=== PATIENT | male | born 1980 | race Caucasian/White ===

== ENCOUNTER 2020-05-24 15:59 | Outpatient (REF) | payer OTHER, SELFPAY ==
[2020-05-29 17:10] LABS: Patient Race White; SARS-CoV-2 RNA Undetected (Undetected); SARS-CoV-2 Specimen Source Nasal
== END 2020-05-24 16:19 ==
LOC: NCHCN 15:59
PROVIDERS: PCP Nurse Practitioner Family; Visit Provider Nurse Practitioner Family
DX: Z20.828 Contact with and (suspected) exposure to other viral communicable diseases (principal)
CPT/HCPCS: U0003

== ENCOUNTER 2020-12-25 09:46 | Emergency (ER) | payer OTHER, SELFPAY ==
[2020-12-25] VITALS (32 sets, daily range): BP systolic 100–136; BP diastolic 58–84; PULSE 64–89; RESP 11–29; TEMP 36.7; O2SAT 94–98
--- NOTE | 2020-12-25 09:45 | RT.EKG_ITS ---
APPROVED REPORT Exam: Resting ECG Reason for Exam: sob Patient Location: E HR:72 bpm ECG Measurements Heart Rate 72 AXIS OH 140 P 16 QRSd 104 QRS 8 QT 419 T 133 QTc 459 Conclusion Sinus rhythm...normal P axis, V-rate 60- 99 LVH with secondary repolarization abnormality...multi-LVH criteria, abnrm ST-T Tall T, consider metabolic/ischemic abnrm...T >1.2mV
--- NOTE | 2020-12-25 10:15 | DI.RAD_ITS ---
Exam(s) XR CHEST 2V PA LATERAL EXAM: XR CHEST 2V PA LATERAL CLINICAL HISTORY: palpitations, shortness of breath TECHNIQUE: 2D digital imaging was performed. COMPARISON: No exams were available for comparison FINDINGS: MEDIASTINUM: Normal. HEART: Normal. PULMONARY VASCULATURE: Normal. LUNGS: Clear. PLEURAL SPACE: No pleural effusion or pneumothorax. BONE:Within normal limits for the patient's age. OTHER FINDINGS:Normal. IMPRESSION: No acute pulmonary findings. DATA REPOSITORY: RADIATION DOSE DELIVERED:
[2020-12-25 10:39] LABS: Abs Immature Grans 0.02 10^3/uL (0.0-0.06); Absolute Basophil Count 0.05 10^3/uL (0.0-0.2); Absolute Eosinophil Count 0.37 10^3/uL (0.0-0.7); Absolute Lymphocyte Count 1.93 10^3/uL (1.2-3.4); Absolute Monocyte Count 0.47 10^3/uL (0.1-0.8); Absolute Neutrophil Count 5.28 10^3/uL (1.2-6.7); Basophils % 0.6; Eosinophils % 4.6; HCT 44.7 % (40.0-50.0); Immature Grans % 0.2; Lymphocytes % 23.8; MCH 28.1 pg (27.0-33.0); MCHC 33.6 % (32.0-36.0); MCV 83.9 fL (80-95); MPV 11.6 fL (8.0-11.0); Monocytes % 5.8; Nucleated RBC 0 %; Platelet Count 195 10^3/uL (130-400); RBC 5.33 10^6/uL (4.36-5.78); RDW-SD 39.4 fL; WBC 8.12 10^3/uL (4.4-10.8)
[2020-12-25 11:00] LABS: ALT 36 U/L (16-63); AST 22 U/L (15-37); Alkaline Phosphatase 85 U/L (46-116); Anion Gap 8.5 mmol/L (3-11); BUN 15 mg/dL (7-18); Bilirubin, Total 0.6 mg/dL (0.2-1.0); CO2 27.5 mmol/L (21.0-32.0); CREATININE 0.9 mg/dL (0.70-1.30); Calcium 9.2 mg/dL (8.5-10.1); Chloride 105 mmol/L (98-107); Glucose 116 mg/dL (74-106); Sodium 141 mmol/L (136-145); Total Protein 7.9 g/dL (6.4-8.2)
[2020-12-25 11:01] LABS: Troponin I < 0.05 ng/mL (<0.06)
--- NOTE | 2020-12-25 11:01 | ED.GENADUL_ITS ---
Discharge Plan Disposition Patient Disposition: HOME Condition: Stable Discharge Details Clinical Impression: PAC (premature atrial contraction), Palpitations Primary Care Provider: Nimisha,Local ED Provider: Wu Sanford Home Meds and New Rx's Prescriptions: Continued metoprolol succinate 100 mg tablet extended release 24 hr 100 mg PO HS RF: 0 omeprazole 40 mg capsule,delayed release(DR/EC) 40 mg PO QAM RF: 0 rosuvastatin 20 mg tablet 20 mg PO HS RF: 0 Discharge Instructions Instructions: Heart Palpitations (ED) Additional Instructions: Please take your medications as prescribed. Please contact your primary care physician to arrange follow-up. I have asked care management to assist in arranging local primary care follow-up. You should be contacted to schedule an appointment. Please follow-up with your loading machine operator. Call [facility] cardiology today to arrange timely follow-up within the next couple weeks Return to the ER immediately immediately for any worsening or new concerning symptoms. Discharge Data Discharge Date/Time-TO BE ENTERED AT DEPARTURE: 12/25/20 14:14 Medical Decision Making 1119??40-year-old male with history of cardiomyopathy and chronic infrequent episodes of palpitations, here with 3 days of intermittent palpitations after attending a green party and consuming alcohol. Patient is hemodynamically stable with no arrhythmia noted on monitor on initial assessment. He is saturating well in no respiratory distress with clear lungs. Screening ECG was reviewed and interpreted by me: Please see report, sinus rhythm 72 bpm, LVH, tall T waves are noted. I obtained outside hospital medical record and reviewed old 2019 EKG from [facility] dated 01/28/2019 which also shows LVH and ST changes, patient does have peaked although less significant T wave precordial leads. Patient did experience some palpitations while here in the emergency department and I reviewed rhythm strip from those episodes revealing PACs. Patient has had no chest pain or leg pain or swelling to indicate DVT/PE. Again he is saturating well with no respiratory distress with no shortness of breath at this time. Plan will be to obtain additional outside hospital records from [facility] cardiology. I will check screening labs to look for electrolyte abnormalities or thyroid that would predispose palpitations. We will check troponin level to assess for any ongoing ischemia although I think this is unlikely. 1405 --patient reassessed multiple times and is remained stable. He does have intermittent PACs on monitor. Patient was given IV fluid to 50 mL bolus and metoprolol 50 mg p.o. Orthostatic vital signs checked and normal. Patient was able to ambulate without any difficulty. Labs reviewed and no significant electrolyte abnormalities. Repeat EKG was reviewed and interpreted by me: Please see report, no significant changes compared to prior I did call and consult with patient cardiology group at [facility] and spoke with loading machine operator on-call, discussed ED presentation course, he noted if labs normal and nonsustained arrhythmia, discharged with the recommend discharge with outpatient follow-up in clinic. HPI General Mode of arrival: ambulatory . Date/Time Provider Initiated Documentation: 12/25/20 10:02 . Limitations to Documentation: no limitations . Information obtained by: patient . HPI Narrative: 40-year-old male with history of cardiomyopathy presents with chief complaint of palpitations. Patient notes that he has intermittent episodes of palpitations that he experiences and flares a couple times a year for years. Is currently having 1 of these exacerbations over the past 3 days. He notes this past weekend he consumed a heavy not of alcohol and subsequently developed palpitations that he describes as heavy beats that have associated shortness of breath during time of palpitation. He notes she is recently had some fatigue over the past couple days. he denies chest pain. No leg swelling or pain. No other symptoms. He notes that he took his metoprolol and having palpitations yesterday and that this did help his symptoms. He had some palpitations this morning and does not currently. He does consume small amount of caffeinated beverages on a regular basis. No recent dietary changes. Related Data Home Medications Medication Instructions Recorded Confirmed metoprolol succinate 100 mg PO 12/25/20 12/25/20 omeprazole 40 mg PO [facility] 12/25/20 12/25/20 rosuvastatin 20 mg PO 12/25/20 12/25/20 Allergies Allergy/AdvReac Type Severity Reaction Status Date / Time No Known Allergies Allergy Unverified 12/25/20 09:56 General Stated Complaint: Palpitatns NANETTE: 3 Review of Systems All systems reviewed & are unremarkable except as noted in HPI and below Constitutional Constitutional: Reports fatigue and Denies fever(s) Cardiovascular Cardiovascular: Reports as per HPI and Denies chest pain Respiratory Respiratory: Reports as per HPI Endocrine Endocrine: Reports fatigue [facility] Medical History (Updated 12/25/20 @ 13:59 by Wu Sanford MD) Cardiomyopathy GERD (gastroesophageal reflux disease) H/O renal calculi Surgical History H/O hernia repair Family History (Updated 01/01/21 @ 16:12 by Sonal Muller) Mother High cholesterol Father Carcinoma Depression Heart disease High cholesterol Hypertension Sister Depression Heart disease High cholesterol Hypertension Maternal Grandfather , 83 Lymphoma Heart disease Paternal Grandfather , 74 Diabetes Heart disease High cholesterol Maternal Grandmother No problems noted. Paternal Grandmother , 76 Diabetes Social History (Updated 01/01/21 @ 16:10 by Sonal Muller) Smoking/Tobacco Use Status: Former Tobacco Use tobacco type: cigarettes Quit Date: 07/13/14 Tobacco: How many years used: 20 Second Hand Exposure: Yes Smoking risk assessment performed?: Yes Alcohol Intake: current Alcohol Intake frequency: a few times a week Alcohol type: beer and hard liquor Drug use: Daily Substance use type: marijuana Household members: spouse Housing: house Communication Needs: None Do you need help understanding health information?: Never Pets and animals: Yes Pets and animals: cat(s) and dog(s) Sexually active: Yes Do you think of yourself as: straight/heterosexual Current gender identity: male What is your relationship status?: How often do you talk on the phone with friends or family?: twice per week How often do you get together with friends or relatives?: once per week How often do you attend anabaptism or islam services?: decline to answer Do you belong to any clubs or organized social groups?: decline to answer Panel score (0-1 are the most socially isolated patients): 2 Duration: 30-45 minutes/day Frequency: 3-4 times per week Ciarra/Uatsdin: Other Special ciarra needs: No Seatbelt use: always Drive intox or ride w/intox bulk driver: No Do you feel safe at home: Yes Do you feel safe in your relationship?: Yes Exam Const General: cooperative and no acute distress HENMT Mouth: moist mucous membranes Eyes Conjunctivae: normal conjunctivae Sclera: normal sclerae Neck Neck: trachea midline and supple Resp Auscultation: clear to auscultation bilaterally, no rales, no rhonchi and no wheezes Cardio Jugular venous pressure: no JVD Rate: regular rate and not tachycardic Rhythm: regular rhythm Heart Sounds: murmur systolic II/ GI Palpation: soft, not firm, no guarding, no masses, not rigid and nontender Skin General skin exam: no rashes or lesions noted Neuro General: patient alert, patient awake, patient oriented x3 and tone normal Extrem General: no calf tenderness and no edema Psych Appearance: grossly normal Mental Status: mental status grossly normal Speech and Movement: speech and movement normal Course Vital Signs Vital signs: Vital Signs Temperature 36.7 C 12/25/20 09:53 Pulse 85 12/25/20 09:53 Respiratory Rate 16 12/25/20 09:53 Blood Pressure 136/76 12/25/20 09:53 Pulse Oximetry 98 12/25/20 09:53 Temperature 36.7 C 12/25/20 09:53 Temperature Source Skin 12/25/20 09:53 Pulse 85 12/25/20 09:53 Respiratory Rate 16 12/25/20 09:53 Respiratory Effort Non-Labored 12/25/20 09:58 Blood Pressure 136/76 12/25/20 09:53 Blood Pressure Position Sitting 12/25/20 09:53 Pulse Oximetry 98 12/25/20 09:53 Oxygen Delivery Method Room Air 12/25/20 09:53 Oxygen Flow Rate 0 12/25/20 09:53 Pain Level 0 12/25/20 09:53 Lab/Test Results Lab/Test Results: Laboratory Tests Range/Units 12/25/20 12/25/20 10:05 10:05 WBC (4.4-10.8) 10^3/uL 8.12 RBC (4.36-5.78) 10^6/uL 5.33 Hgb (13.5-17.5) g/dL 15.0 Hct (40.0-50.0) % 44.7 MCV (80-95) fL 83.9 MCH (27.0-33.0) pg 28.1 MCHC (32.0-36.0) % 33.6 RDW (11.8-14.1) % 13.0 Plt Count (130-400) 10^3/uL 195 MPV (8.0-11.0) fL 11.6 H Immature Gran % 0.2 Neutrophils % 65.0 Lymphocytes % 23.8 Monocytes % 5.8 Eosinophils % 4.6 Basophils % 0.6 Nucleated RBC % % 0 Absolute Neutrophils (1.2-6.7) 10^3/uL 5.28 Absolute Lymphocytes (1.2-3.4) 10^3/uL 1.93 Absolute Monocytes (0.1-0.8) 10^3/uL 0.47 Absolute Eosinophils (0.0-0.7) 10^3/uL 0.37 Absolute Basophils (0.0-0.2) 10^3/uL 0.05 Sodium (136-145) mmol/L 141 Potassium (3.5-5.1) mmol/L 4.0 Chloride (98-107) mmol/L 105 Carbon Dioxide (21.0-32.0) mmol/L 27.5 Anion Gap (3-11) mmol/L 8.5 BUN (7-18) mg/dL 15 Creatinine (0.70-1.30) mg/dL 0.9 Estimated GFR/1.73 m2 (mL/min/1.73m2) >= 60.00 Glucose (74-106) mg/dL 116 H Calcium (8.5-10.1) mg/dL 9.2 Magnesium (1.8-2.4) mg/dL 2.0 Total Bilirubin (0.2-1.0) mg/dL 0.6 AST (15-37) U/L 22 ALT (16-63) U/L 36 Alkaline Phosphatase (46-116) U/L 85 Troponin I (<0.06) ng/mL < 0.05 Total Protein (6.4-8.2) g/dL 7.9 Albumin (3.4-5.0) g/dL 4.0 TSH (0.36-3.74) uIU/mL 1.70
[2020-12-25] MEDS: Metoprolol 50 MG TAB PO (12:59)
[2020-12-25] MEDS: Lactated Ringers 250 ML 500 ML IV (12:59)
[2020-12-25] MEDS: Normal Saline Flush 10 ML SYR IVP (13:00)
--- NOTE | 2020-12-25 13:45 | RT.EKG_ITS ---
APPROVED REPORT Exam: Resting ECG Reason for Exam: palpitations Patient Location: E HR:59 bpm ECG Measurements Heart Rate 59 AXIS DE 152 P 22 QRSd 103 QRS 7 QT 447 T 139 QTc 442 Conclusion Sinus bradycardia...rate< 60 LVH with secondary repolarization abnormality...multi-LVH criteria, abnrm ST-T
[2020-12-25 14:37] LABS: Troponin I < 0.05 ng/mL (<0.06)
--- NOTE | 2020-12-25 18:58 | NUR.NOTE ---
Nursing Note: pt referred to cm to establish pcp
== END 2020-12-25 14:14 | disposition home or self-care (01) ==
PROVIDERS: Emergency Provider Student in an Organized Health Care Education/Training Program
DX: I49.1 Atrial premature depolarization (principal); R00.2 Palpitations
CPT/HCPCS: 36415; 80053; 93005; 96360; 99284; 71046; 83735; 84443; 84484; 85025; 93010

== ENCOUNTER 2021-05-22 16:41 | Outpatient (REF) | payer OTHER, SELFPAY ==
[2021-05-23 00:42] LABS: Hemoglobin A1C 5.7 % (<5.7)
[2021-05-23 08:25] LABS: Calculated LDL 126 mg/dL (<100); Cholesterol 214 mg/dL (<200); HDL Cholesterol 66 mg/dL (40-60); Triglyceride 112 mg/dL (<150)
== END 2021-05-22 16:42 | disposition home or self-care (01) ==
LOC: LBN 16:41
PROVIDERS: PCP Nurse Practitioner Family; Visit Provider Nurse Practitioner Family
DX: Z13.220 Encounter for screening for lipoid disorders (principal); Z13.1 Encounter for screening for diabetes mellitus
CPT/HCPCS: 80061; 83036

== ENCOUNTER 2021-05-23 14:42 | Outpatient (CLI) | payer OTHER, SELFPAY ==
--- NOTE | 2021-06-17 10:42 | ZIOP_ITS ---
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 ?The patient was in normal sinus rhythm for the majority of the recording with an average heart rate of 82 bpm ?There were 4 episodes of supraventricular tachycardia the longest lasting 6 beats at a rate of 115 bpm. There were rare PACs ?There was one episode of NSVT lasting a total of 4 beats. There were rare PVCs ?There were no episodes of atrial fibrillation, no pauses greater than 3 seconds and no evidence of high degree heart block. ?There were no patient triggered events. Overall, this monitor is notable for a low burden of ectopy.
== END 2021-05-23 14:43 | disposition home or self-care (01) ==
LOC: RT 14:42
PROVIDERS: PCP Nurse Practitioner Family; Visit Provider Nurse Practitioner Family
CPT/HCPCS: 93246

== ENCOUNTER → 2021-10-22 13:09 | Outpatient (CLI) | payer OTHER, SELFPAY ==
--- NOTE | 2021-10-22 15:45 | DI.RAD_ITS ---
Exam(s) XR HIP RT COMPLETE AP PELVIS EXAM: XR HIP RT COMPLETE AP PELVIS CLINICAL HISTORY: Failing PT/continued pain M25.551 PAIN RT HIP. TECHNIQUE: 2D digital imaging was performed of the right hip. Three images were obtained. AP pelvis and lateral right hip views were obtained. COMPARISON: No exams were available for comparison FINDINGS: BONES: No acute fracture is present. No bony destructive lesion is seen. JOINTS: No dislocation present. There is mild narrowing and acetabular spurring of the hips bilateral ly. SOFT TISSUE: Normal. IMPRESSION: Mild degenerative changes of the right hip. DATA REPOSITORY: RADIATION DOSE DELIVERED:
== END ==
PROVIDERS: PCP Nurse Practitioner Family; Visit Provider Nurse Practitioner Family
DX: M25.551 Pain in right hip (principal); M16.11 Unilateral primary osteoarthritis, right hip
CPT/HCPCS: 73502

== ENCOUNTER 2021-10-29 08:41 | Outpatient (CLI) | payer OTHER, SELFPAY ==
[2021-10-30 00:38] LABS: COVID-19 RT-PCR UVMMC Result Negative (Negative)
== END 2021-10-29 08:42 | disposition home or self-care (01) ==
LOC: LBO 08:43
PROVIDERS: Nurse Practitioner Family; PCP Nurse Practitioner Family; Visit Provider Nurse Practitioner Family
DX: Z20.822 Contact with and (suspected) exposure to COVID-19 (principal)
CPT/HCPCS: U0003

== ENCOUNTER → 2021-11-06 02:18 | Outpatient (CLI) | payer OTHER, SELFPAY ==
--- NOTE | 2021-11-06 15:55 | DI.RAD_ITS ---
Exam(s) XR SHOULDER RT COMPLETE 2+V EXAM: XR SHOULDER RT COMPLETE 2+V CLINICAL HISTORY: RT SHOULDER PAIN,,M25.511. TECHNIQUE: 2D digital imaging was performed. Five views. COMPARISON: No exams were available for comparison FINDINGS: BONES: No acute fracture is present. No bony destructive lesion is seen. JOINTS: No dislocation present. SOFT TISSUE: Normal. IMPRESSION: Unremarkable radiographs of the right shoulder. DATA REPOSITORY: RADIATION DOSE DELIVERED:
== END ==
PROVIDERS: PCP Nurse Practitioner Family; Visit Provider Nurse Practitioner Family
DX: M25.511 Pain in right shoulder (principal)
CPT/HCPCS: 73030

== ENCOUNTER 2022-01-10 20:58 | Emergency (ER) | payer OTHER, SELFPAY ==
[2022-01-10 21:02] VITALS: BP 132/87; PULSE 88; RESP 16; TEMP 36.2; O2SAT 99
[2022-01-10] MEDS: Lidocaine 1% Multi-Dose 20 ML VIAL (21:27)
[2022-01-10] MEDS: Lidocaine 1% Pres-Free 30 ML VIAL IJ (21:49)
--- NOTE | 2022-01-10 22:08 | ED.GENADUL_ITS ---
Discharge Plan Disposition Patient Disposition: HOME Condition: Stable Discharge Details Clinical Impression: Laceration of thumb Primary Care Provider: Abiodun Valentine ED Provider: Shana Lund Home Meds and New Rx's Prescriptions: Continued sertraline 50 mg tablet 50 mg PO DAILY Qty: 90 4RF omeprazole 20 mg capsule,delayed release(DR/EC) 20 mg PO DAILY cetirizine 10 mg capsule 10 mg PO DAILY PRN ibuprofen 800 mg tablet 800 mg PO Q8H albuterol sulfate 90 mcg/actuation HFA aerosol inhaler 2 inh inhalation Q6H PRN (Reason: asthma) Qty: 8.5 3RF metoprolol succinate 50 mg tablet extended release 24 hr 50 mg PO DAILY Qty: 90 3RF metoprolol succinate 100 mg tablet extended release 24 hr 100 mg PO HS rosuvastatin 20 mg tablet 25 mg PO HS Discharge Instructions Instructions: Laceration (ED) Additional Instructions: Keep wound clean and dry Suture removal in 10 to 12 days Keep dry for 24 hours, after that you may expose wound to water, however do not submerge it in water until sutures are removed Keep covered while at work Change dressing daily Wash with soap and water No need to apply bacitracin or anything over the surface Referrals: Abiodun Valentine, COMPUTER SCIENCE INTERN [Primary Care Provider] - Medical Decision Making suture removal in 10-12 days dressing applied by me return with new or worsening complaints Medical Records Medical records reviewed: Yes I reviewed the patient's medical records. Lab Data Lab results reviewed: Yes I reviewed the patient's lab results. HPI General Date/Time Provider Initiated Documentation: 01/10/22 21:20 . HPI Narrative: Next 47-year-old male presents with report of laceration to his right thumb. He states he was closing his arm in a splint and accidentally cut his thumb. He denies any additional injuries. He states his tetanus is up-to-date. Denies history of coagulopathy. Related Data Home Medications Medication Instructions Recorded Confirmed omeprazole 20 mg capsule,delayed 20 mg PO DAILY 01/24/21 01/10/22 release cetirizine 10 mg capsule 10 mg PO DAILY PRN 02/05/21 01/10/22 ibuprofen 800 mg tablet 800 mg PO Q8H 02/05/21 01/10/22 albuterol sulfate 90 mcg/actuation 2 inh inhalation Q6H PRN asthma 05/08/21 01/10/22 aerosol inhaler #8.5 grams sertraline 50 mg tablet 50 mg PO DAILY #90 tabs 07/03/21 01/10/22 metoprolol succinate 50 mg 50 mg PO DAILY #90 tabs 08/02/21 01/10/22 tablet,extended release 24 hr metoprolol succinate 100 mg 100 mg PO HS 01/10/22 01/10/22 tablet,extended release 24 hr rosuvastatin 20 mg tablet 25 mg PO HS 01/10/22 01/10/22 Previous Rx's Medication Instructions Recorded albuterol sulfate 90 mcg/actuation 2 inh inhalation Q6H PRN asthma 05/08/21 aerosol inhaler #8.5 grams sertraline 50 mg tablet 50 mg PO DAILY #90 tabs 07/03/21 metoprolol succinate 50 mg 50 mg PO DAILY #90 tabs 08/02/21 tablet,extended release 24 hr Allergies Allergy/AdvReac Type Severity Reaction Status Date / Time house dust Allergy Unknown Verified 01/10/22 21:08 cat dander Allergy Verified 01/10/22 21:08 General Stated Complaint: Laceration NANETTE: 4 Review of Systems Narrative: Review of systems obtained x3 and negative aside from indication in HPI PFSH All Active Problems (Updated 01/10/22 @ 22:05 by NORMA Mathis) Laceration of thumb (Acute) Right hip pain (Acute) Epigastric pain (Acute) Class 1 obesity without serious comorbidity with body mass index (BMI) of 33.0 to 33.9 in adult (Acute) High cholesterol (Chronic) Calcifying tendinitis of shoulder (Acute) GERD (gastroesophageal reflux disease) (Chronic) Anxiety (Chronic) Prediabetes (Acute) IHSS (idiopathic hypertrophic subaortic stenosis) (Acute) PAC (premature atrial contraction) (Acute) Palpitations (Acute) Medical History Cardiomyopathy GERD (gastroesophageal reflux disease) H/O renal calculi History of fibula fracture Surgical History H/O hernia repair Family History Mother High cholesterol Hypertension Father Carcinoma skin Depression Heart disease High cholesterol Hypertension Diabetes Sister Depression Heart disease High cholesterol Hypertension Diabetes Maternal Grandfather , 83 Lymphoma Heart disease Paternal Grandfather , 74 Diabetes Heart disease High cholesterol Maternal Grandmother No problems noted. Paternal Grandmother , 76 Diabetes Dementia Social History (Updated 07/30/21 @ 13:09 by Sheri Cee RN) Smoking/Tobacco Use Status: Former Tobacco Use tobacco type: cigarettes Quit Date: 07/13/14 Tobacco: How many years used: 20 Second Hand Exposure: Yes Smoking risk assessment performed?: Yes Alcohol Intake: current Alcohol Intake frequency: 3 or more drinks per day Alcohol type: beer and hard liquor Drug use: Daily Substance use type: marijuana Household members: spouse Housing: house Communication Needs: None Do you need help understanding health information?: Never current occupation: works at [employer] Pets and animals: Yes Pets and animals: cat(s) and dog(s) Sexually active: Yes Do you think of yourself as: straight/heterosexual Current gender identity: male What is your relationship status?: How often do you talk on the phone with friends or family?: twice per week How often do you get together with friends or relatives?: once per week How often do you attend religious or quaker services?: decline to answer Do you belong to any clubs or organized social groups?: decline to answer Panel score (0-1 are the most socially isolated patients): 2 Duration: 30-45 minutes/day Frequency: 3-4 times per week Ciarra/Spiritism: Other Special ciarra needs: No Seatbelt use: always Drive intox or ride w/intox corrugated fastener driver: No Do you feel safe at home: Yes Do you feel safe in your relationship?: Yes Exam Extrem Hand/finger images: 1. half-inch laceration noted, through nailbed n/v intact Course Vital Signs Vital signs: Vital Signs Temperature 36.2 C L 01/10/22 21:02 Pulse 88 01/10/22 21:02 Respiratory Rate 16 01/10/22 21:02 Blood Pressure 132/87 01/10/22 21:02 Pulse Oximetry 99 01/10/22 21:02 Temperature 36.2 C L 01/10/22 21:02 Pulse 88 01/10/22 21:02 Respiratory Rate 16 01/10/22 21:02 Respiratory Effort 01/10/22 21:11 Blood Pressure 132/87 01/10/22 21:02 Blood Pressure Position Sitting 01/10/22 21:02 Pulse Oximetry 99 01/10/22 21:02 Pain Level 0 01/10/22 21:02 Procedures Laceration Laceration 1: Site: hand Side (If applicable): right Size (cm): 1.5 Description: flap Depth: simple, single layer Local Anesthetic: Lidocaine 1% Amount of anesthesia used (mL): 3 Pre-repair: wound explored and irrigated extensively Skin layer closed with: other Size (cm): 4-0 Number of sutures: 3 Technique: simple, interrupted PAWSS Have you Been Recently Intoxicated or Drunk Within the Last 30 days?: No Have you Ever Experienced Previous Episodes of Alcohol Withdrawal?: No Have you ever Experienced Withdrawal Seizures?: No Have you ever Experienced Delirium Tremens(DT)s?: No Have you ever undergone Alcohol Rehabilitation Treatment (i.e, inpt ot outpatient treatment programs)?: No Have you ever Experienced Blackouts?: No Have you ever Combined Alcohol with other Downers within the last 90 days?: No Have you ever Combined Alcohol with any other Substance of Abuse during the last 90 days?: No Positive Blood Alcohol level on Presentation? [PCS.BAL]: No Evidence of Increased Autonomic Activity (i.e. HR>120, tremor, sweating, agitation, nausea)?: No Result: 0
== END 2022-01-10 22:13 | disposition home or self-care (01) ==
PROVIDERS: Emergency Provider Physician Assistant; PCP Nurse Practitioner Family
DX: S61.111A Laceration without foreign body of right thumb with damage to nail, initial encounter (principal); Z87.891 Personal history of nicotine dependence; W26.8XXA Contact with other sharp object(s), not elsewhere classified, initial encounter
CPT/HCPCS: 12001; 99281; 99282; J3490

== ENCOUNTER → 2022-03-03 15:16 | Outpatient (CLI) | payer OTHER, SELFPAY ==
--- NOTE | 2022-03-03 13:15 | DI.RAD_ITS ---
Exam(s) XR LUMBAR SPINE COMPLETE EXAM: XR LUMBAR SPINE COMPLETE CLINICAL HISTORY: lumbar back pain, M54.50. TECHNIQUE: 2D digital imaging was performed of the lumbar spine. Five images were obtained. AP, la teral, right oblique, left oblique and L5-S1 spot views were obtained. COMPARISON: No exams were available for comparison FINDINGS: BONES: No fracture or destructive lesion. Endplate osteophytes are seen throughout the lumbar spine. Mild facet sclerosis at L5-S1. DISKS: Mild disc space narrowing at L3-L4. ALIGNMENT: Lumbar spinal alignment is within normal limits. No spondylolysis or spondylolisthesis. SOFT TISSUE: Normal. IMPRESSION: Mild degenerative changes in the lumbar spine. DATA REPOSITORY: RADIATION DOSE DELIVERED:
== END ==
PROVIDERS: PCP Nurse Practitioner Family; Visit Provider Nurse Practitioner Family
DX: M47.816 Spondylosis without myelopathy or radiculopathy, lumbar region (principal)
CPT/HCPCS: 72110

== ENCOUNTER 2022-07-31 03:12 | Outpatient (CLI) | payer OTHER, SELFPAY ==
--- NOTE | 2022-07-31 07:45 | DI.RAD_ITS ---
Exam(s) RF JOINT INJECTION FLUORO GUID EXAM: RF JOINT INJECTION FLUORO GUID CLINICAL HISTORY: R HIP INJ UNDER FLUORO,rt hip pain, m25.551 TECHNIQUE: Fluoroscopy provided. Radiologist not present. CONTRAST MATERIAL: None COMPARISON: No exams were available for comparison FINDINGS: Fluoroscopy was provided for Dr. Quiroga during right hip injection. Please refer to the procedure report for complete details. Cumulative Dose: Ka,r=893 mGy IMPRESSION: RADIATION DOSE DELIVERED:
[2022-07-31] MEDS: Omnipaque 300 MG/ML 10 ML BTL IJ (13:55)
[2022-07-31] MEDS: Bupivacaine 0.5% Pres-Free 10 ML VIAL IJ (13:56)
[2022-07-31] MEDS: methylPREDNISolone ACETATE 80 MG/ML VIAL IM (13:56)
--- NOTE | 2022-07-31 18:34 | W.PROCNOTE ---
Date of service: 07/31/22 Time of Service: 13:40 Procedure Note Date of procedure: 07/31/22 Procedure: Right Hip Injection with Fluoroscopic Guidance Surgeon/Proceduralist/Physician: Markie Quiroga Procedure Diagnosis: Right Hip Pain Procedure Indications: Finesse has had persistent pain of the RIGHT hip and groin. Noninvasive measures have been tried. To serve as both diagnostic and therapeutic, an injection under fluoroscopy was recommended. I had discussed the risks of the procedure and the patient elected to proceed. Procedure Description: Finesse was greeted in the flouroscopy room. The correct side was identified and the consent was reviewed with the patient and signed. The patient was then placed in the supine position on the fluoroscopy table. The RIGHT hip was then prepped with Chloraprep. The anterolateral injection starting point was identiifed by bony landmarks and fluoroscopy. The skin and soft tissue in the tract of the injection was anesthetized with 1% Lidocaine. A spinal needle was then inserted deep into the hip joint at the level of the lateral femoral neck under fluoroscopic guidance. A small amount of Omnipaque solution was injected to confirm intraarticular placement. Once confirmed, the hip was injected with 5cc of 0.5% Bupivicaine and 80mg of Depo-Medrol. A bandaid was placed on the injection site. The patient tolerated the procedure well.
== END 2022-07-31 03:32 ==
LOC: DI 03:14
PROVIDERS: PCP Nurse Practitioner Family; Visit Provider Student in an Organized Health Care Education/Training Program
DX: M25.551 Pain in right hip (principal)
CPT/HCPCS: 20610; 77002; J1040

== ENCOUNTER 2022-09-22 02:41 | Outpatient (CLI) | payer OTHER, SELFPAY ==
--- NOTE | 2022-09-22 13:45 | DI.US_ITS ---
APPROVED REPORT EXAM: Comprehensive 2D, Doppler, and color-flow Echocardiogram Patient Location: Out-Patient Community Service Manager: Marisela Callaway RDCS (AE) Indications: Hypertrophic Cardiomyopathy Other Information Study Quality: Adequate Conclusion Severe concentric left ventricular hypertrophy. Left ventricular cavity is small. EF is 60 to 65%, normal wall motion Normal right ventricular size and systolic function Both atria are normal in size The aortic valve is trileaflet without stenosis or regurgitation Severe mitral annular calcification. Mildly thickened mitral leaflets. Moderate mitral regurgitatio n. Normal tricuspid valve with trace to mild regurgitation Dilated ascending aorta measuring 3.65 cm LVOT gradient peak is 50 mmHg Wall motion Left Ventricle The left ventricle is normal size. The overall left ventricular systolic function appears normal. Sev ere concentric left ventricular hypertrophy Echo findings are consistent with a left ventricular outf low tract obstruction. Left ventricular outflow tract gradient is present. There is normal LV segment al wall motion. There is no ventricular septal defect visualized. LVEF is 60 to 65% Right Ventricle The right ventricle is normal size. The right ventricular systolic function is normal. Atria The left atrium size is normal. The right atrium size is normal. The interatrial septum is intact wit h no evidence for an atrial septal defect. Aortic Valve The aortic valve is normal in structure. Aortic valve is trileaflet. There is no aortic valvular sten osis. No aortic regurgitation is present. Mitral Valve Severe mitral annular calcification. Mildly thickened mitral leaflets No evidence of mitral valve nehemiah nosis. Moderate mitral regurgitation. Tricuspid Valve The tricuspid valve is normal in structure. There is no tricuspid valve stenosis. Trace to mild tricu spid regurgitation. Unable to assess PA pressure. Pulmonic Valve The pulmonary valve is normal in structure. There is no pulmonic valvular stenosis. Trace pulmonic re gurgitation. Great Vessels The aortic root is normal in size. The ascending aorta is mildly dilated. Aortic arch is normal in ca liber. IVC is normal in size and collapses >50% with inspiration. Pericardium There is no pericardial effusion. 2D Dimensions IVSD d PLAX 1.93 cm M: 0.6-1.2 LV Vol A2C d MOD 187.5 mL LVPW d PLAX 1.36 cm M: 0.6 - 1.2 LV Vol A4C d MOD 192.3 mL LVID d PLAX 4.49 cm M: 4.2 - 5.8 LA vol/ BSA A2C s A-L 34.5 mL/m2 LVDs 3.20 cm M: 2.5 - 4.0 LA vol/ BSA A4C s A-L 39.5 mL/m2 Ao Root d 3.44 cm M: 3.1 - 3.7 LA Vol/ BSA Biplane s A-L 38.3 mL/m2 RA Area A4C 14.15 cm2 LA Area A4C s MOD 23.55 cm2 RA Vol/ BSA A4C s A-L 14.7 mL/m2 LA Area A2C s MOD 21.23 cm2 Ao Asc Diam d 3.64 cm M: 2.6 - 3.4 LV EF A4C MOD 50.2 % LV EF Teichholz 55.0 % LV EF A2C MOD 55.3 % LVEF (Salmon's) 51.84 % M: 52 - 72 LV EF Biplane MOD 51.8 % LV Volume 138.41 mL M: 62 - 150 SV 98.55 mL LV Volume Index 63.20 mL/m2 M: 34 - 74 SV Index 44.96 mL/m2 LV Vol Biplane MOD 190.1 mL FS 28.40 % M-Mode TAPSE 2.81 cm (M/F) >1.7 LV Diastology MV E' medial 0.061 (>0.07 m/s) E/A Ratio 1.5 LV E/e MED 25.05 (<14) MV E Vmax 1.52 (0.4-1.3 m/s) MV E' lateral 0.061 (>0.1 m/s) MV A Vmax 1.00 (0.4-1.3 m/s) LV E/e LAT 25.05 (<14) MV E/A Ratio 1.47 MV E/E' medial 25.05 MV E/E' lateral 25.05 Aortic Valve LVOT Area 3.74 cm2 LVOT Vmax 3.50 m/s LVOT Mean Yung. 2.00 m/s LVOT Peak Grad 49.1 mmHg LVOT Mean Grad 19.9 mmHg LVOT VTI 0.489 m LVOT Diam s 2.15 cm LVOT SV 183.16 mL Mitral Valve MV DT 239 (160-240 msec) MV PHT 69 msec MV Area PHT 3.17 cm2 MV VTI 0.399 m MV Area VTI 4.59 (4.0-6.0 cm2) Pulmonary Valve PV Vmax 1.17 (0.5-1.5 m/s) RVOT Peak Gr. 3.40 mmHg PV Peak Grad 5.5 mmHg RVOT Mean Gr. 1.80 mmHg PV Mean Grad 3.2 mmHg RVOT VTI 0.145 m PV VTI 0.228 m RVOT Vmax 0.92 m/s
== END 2022-09-22 03:01 ==
PROVIDERS: PCP Nurse Practitioner Family; Visit Provider Internal Medicine Cardiovascular Disease
DX: I42.1 Obstructive hypertrophic cardiomyopathy (principal)
CPT/HCPCS: 93306

== ENCOUNTER 2024-04-25 03:05 | Outpatient (CLI) | payer OTHER, SELFPAY ==
[2024-04-25 13:08] LABS: Hemoglobin A1C 5.7 % (<5.7)
[2024-04-25 13:09] LABS: Calculated LDL 144 mg/dL (<100); Cholesterol 243 mg/dL (<200); HDL Cholesterol 67 mg/dL (40-60); Triglyceride 164 mg/dL (<150)
== END 2024-04-25 03:06 | disposition home or self-care (01) ==
LOC: LBO 03:06
PROVIDERS: PCP Nurse Practitioner Family; Visit Provider Nurse Practitioner Family
DX: Z13.1 Encounter for screening for diabetes mellitus (principal); Z13.220 Encounter for screening for lipoid disorders
CPT/HCPCS: 36415; 80061; 83036

== ENCOUNTER 2024-06-03 17:52 | Outpatient (REF) | payer OTHER, SELFPAY | END 2024-06-03 17:53 | disposition home or self-care (01) | LOC: LBN 17:52 | PROVIDERS: PCP Nurse Practitioner Family; Visit Provider Nurse Practitioner Family | DX: J02.9 Acute pharyngitis, unspecified (principal) | CPT/HCPCS: 87070 ==

== ENCOUNTER 2024-06-05 12:17 | Emergency (ER) | payer OTHER, SELFPAY ==
--- NOTE | 2024-06-05 12:15 | DI.RAD_ITS ---
Exam(s) XR CHEST 2V PA LATERAL EXAM: XR CHEST 2V PA LATERAL CLINICAL HISTORY: cough. TECHNIQUE: 2D digital imaging was performed. COMPARISON: CR XR CHEST 2V PA LATERAL from 12/25/2020 FINDINGS: 2 views: Heart size is normal. The mediastinum is not widened. Lungs are clear. No infiltrates nor pleural effusions. IMPRESSION: No acute pulmonary findings.No significant change compared to 12/25/2020 DATA REPOSITORY: RADIATION DOSE DELIVERED:
--- NOTE | 2024-06-05 12:15 | RT.EKG_ITS ---
APPROVED REPORT Exam: Resting ECG Reason for Exam: SOB Patient Location: E HR:104 bpm ECG Measurements Heart Rate 104 AXIS WA 162 P 75 QRSd 101 QRS 25 QT 374 T 120 QTc 491 Conclusion Sinus tachycardia...rate> 99 LVH with secondary repolarization abnormality...multi-LVH criteria, abnrm ST-T ST elevation secondary to LVH...Multiple VCG criteria
[2024-06-05 12:21] VITALS: BP 109/75; PULSE 106; RESP 22; TEMP 36.6; O2SAT 93
--- NOTE | 2024-06-05 12:33 | W.ED.GENAD ---
Discharge Plan Disposition Patient Disposition: Home Condition: Stable Discharge Details Clinical Impression: Respiratory infection Primary Care Provider: Abiodun Valentine ED Provider: Chevy Wright Home Meds and New Rx's Prescriptions: New amoxicillin-pot clavulanate 875-125 mg tablet 1 tab PO BID Qty: 19 0RF prednisone 20 mg tablet 60 mg PO DAILY 4 Days Qty: 12 0RF Continued lamotrigine 25 mg tablet See Rx Instructions PO DAILY Qty: 42 0RF Rx Instructions: orally daily; *Take 1 tab, qAM x 2 weeks then Take 2 tabs qAM x 2 weeks.* Then see new prescription. lamotrigine 100 mg tablet 100 mg PO DAILY Qty: 30 3RF Rx Instructions: (Start after completing 50 mg/day) Take 1 tab, qAM until next appt cetirizine 10 mg capsule 10 mg PO DAILY PRN ibuprofen 800 mg tablet 800 mg PO Q8H albuterol sulfate 90 mcg/actuation HFA aerosol inhaler 2 inh inhalation Q6H PRN (Reason: asthma) Qty: 8.5 3RF metoprolol succinate 100 mg tablet extended release 24 hr 100 mg PO HS Qty: 90 3RF metoprolol succinate 50 mg tablet extended release 24 hr 50 mg PO DAILY Qty: 90 3RF omeprazole 20 mg capsule,delayed release(DR/EC) 20 mg PO DAILY Qty: 90 3RF rosuvastatin 20 mg tablet 20 mg PO HS Qty: 90 3RF sertraline 50 mg tablet 50 mg PO DAILY Qty: 90 4RF Discharge Instructions Additional Instructions: Continue to use your albuterol inhaler as needed If not improving this week follow-up with your primary care provider or express care If you feel more ill, have worsening shortness of breath or new symptoms such as persistent vomiting return to the emergency department for reevaluation HPI General Mode of arrival: ambulatory. Date/Time Provider Initiated Documentation: 06/05/24 12:19. Limitations to Documentation: no limitations. Information obtained by: patient. History of Present Illness 43 year old M presents to the emergency department with the chief complaint of cough, described as moderate, Patient started experiencing this day(s) (3) and it has been constant. No relieving factors improve symptom(s), No exacerbating factors reported . Patient notes shortness of breath; denies chest pain and fever/chills. Related Data Home Medications ?Medication ?Instructions ?Recorded ?Confirmed cetirizine 10 mg capsule 10 mg PO DAILY PRN 02/05/21 06/05/24 ibuprofen 800 mg tablet 800 mg PO Q8H 02/05/21 06/05/24 albuterol sulfate 90 mcg/actuation 2 inh inhalation Q6H PRN asthma 12/10/23 06/05/24 aerosol inhaler #8.5 grams metoprolol succinate 100 mg 100 mg PO HS #90 tabs 12/10/23 06/05/24 tablet,extended release 24 hr metoprolol succinate 50 mg 50 mg PO DAILY #90 tabs 12/10/23 06/05/24 tablet,extended release 24 hr omeprazole 20 mg capsule,delayed 20 mg PO DAILY #90 caps 12/10/23 06/05/24 release rosuvastatin 20 mg tablet 20 mg PO HS #90 tabs 12/10/23 06/05/24 sertraline 50 mg tablet 50 mg PO DAILY #90 tabs 12/10/23 06/05/24 lamotrigine 100 mg tablet 100 mg PO DAILY #30 tabs 04/28/24 06/05/24 lamotrigine 25 mg tablet See Rx Instructions PO DAILY #42 04/28/24 06/05/24 tabs amoxicillin 875 mg-potassium 1 tab PO BID #19 tabs 06/05/24 clavulanate 125 mg tablet prednisone 20 mg tablet 60 mg (3 x 20 mg) PO DAILY 4 days 06/05/24 #12 tabs Previous Rx's ?Medication ?Instructions ?Recorded albuterol sulfate 90 mcg/actuation 2 inh inhalation Q6H PRN asthma 12/10/23 aerosol inhaler #8.5 grams metoprolol succinate 100 mg 100 mg PO HS #90 tabs 12/10/23 tablet,extended release 24 hr metoprolol succinate 50 mg 50 mg PO DAILY #90 tabs 12/10/23 tablet,extended release 24 hr omeprazole 20 mg capsule,delayed 20 mg PO DAILY #90 caps 12/10/23 release rosuvastatin 20 mg tablet 20 mg PO HS #90 tabs 12/10/23 sertraline 50 mg tablet 50 mg PO DAILY #90 tabs 12/10/23 lamotrigine 100 mg tablet 100 mg PO DAILY #30 tabs 04/28/24 lamotrigine 25 mg tablet See Rx Instructions PO DAILY #42 04/28/24 tabs amoxicillin 875 mg-potassium 1 tab PO BID #19 tabs 06/05/24 clavulanate 125 mg tablet prednisone 20 mg tablet 60 mg (3 x 20 mg) PO DAILY 4 days 06/05/24 #12 tabs Allergies Allergy/AdvReac Type Severity Reaction Status Date / Time house dust Allergy Unknown sneezing Verified 06/05/24 12:23 cat dander Allergy sneezing Verified 06/05/24 12:23 General Stated Complaint: RespSymp NANETTE: 3 Review of Systems All systems reviewed & are unremarkable except as noted in HPI and below Constitutional Constitutional: Denies chills, Denies fever(s) and Denies weakness Cardiovascular Cardiovascular: Denies chest pain and Reports dyspnea Respiratory Respiratory: Reports cough and Reports dyspnea Gastrointestinal Gastrointestinal: Denies abdominal pain, Denies nausea and Denies vomiting Neurologic Neurologic: Denies weakness Exam Const General: no acute distress Orientation: alert HENMT Head: normal to inspection Ears: external ears normal General nose exam: external nose normal Mouth: moist mucous membranes Eyes General: appearance normal, both eyes and all related structures Neck Neck: normal visual inspection Resp Effort & Inspection: normal respiratory effort and able to speak in complete sentences Auscultation: rhonchi Cardio Jugular venous pressure: no JVD Rate: regular rate Skin General skin exam: no rashes or lesions noted Neuro General: patient alert and patient oriented x3 Extrem General: normal to inspection Psych Mental Status: mental status grossly normal Course Vital Signs Vital signs: Vital Signs Temperature 36.6 C 06/05/24 12:21 Pulse 106 H 06/05/24 12:21 Respiratory Rate 22 06/05/24 12:21 Blood Pressure 109/75 06/05/24 12:21 Pulse Oximetry 93 06/05/24 12:21 Temperature 36.6 C 06/05/24 12:21 Temperature Source Oral 06/05/24 12:21 Pulse 106 H 06/05/24 12:21 Respiratory Rate 22 06/05/24 12:21 Respiratory Effort Short of Breath 06/05/24 12:24 Blood Pressure 109/75 06/05/24 12:21 Blood Pressure Position Sitting 06/05/24 12:21 Pulse Oximetry 93 06/05/24 12:21 Oxygen Delivery Method Room Air 06/05/24 12:21 Oxygen Flow Rate 0 06/05/24 12:21 Medical Decision Making 43-year-old male who is former smoker and continues to smoke marijuana comes in with 3 days of persistent cough along with shortness of breath. He also had a sore throat which is resolved and had a negative strep test with express care. He is in no distress on exam speaking in full sentences with no signs of respiratory distress. He has diffuse rhonchi in both lungs on auscultation. He has no JVD or leg swelling or calf tenderness. His symptoms seem consistent with URI versus pneumonia, will treat his symptoms with a DuoNeb and prednisone, obtain a Fluvid and an x-ray. He has not had fevers and appears well so doubt entities such as sepsis. He has no chest pain or chest pressure and his symptoms seem more infectious in etiology so doubt entities such as ACS, dissection or PE Fluvid negative and x-ray on my read without significant findings. He does note he has had sinus issues for 7 days as well so we will initiate antibiotics for potential sinusitis with Augmentin. Will provide a short course of prednisone as well, he will follow-up with his PCP or express care if not improving and return precautions Differential Diagnosis Differential Diagnosis: URI, pneumonia, bronchitis, COVID Medical Records Medical records reviewed: Yes I reviewed the patient's medical records. ECG Data Attestation: I personally reviewed and interpreted this ECG (s) as follows: Prior ECG tracings: available for review Interpretation: sinus tachycardia rate of 104 pr 162 no stemi Quality:SDOH Health Related Social Needs: No Data to Display PFSH All Active Problems (Updated 06/05/24 @ 13:29 by Chevy Wright MD) Respiratory infection (Acute) Bilateral ankle pain (Acute) Alcohol abuse (Chronic) Depression (Chronic) Femoroacetabular impingement of both hips (Acute) COVID-19 (Acute) Onset 05/14/22. Fully vaccinated - two boosters total Bivalent booster received 05/05/22 Cardiomyopathy (Acute) Low back pain (Acute) Epigastric pain (Acute) Class 1 obesity without serious comorbidity with body mass index (BMI) of 33.0 to 33.9 in adult (Acute) High cholesterol (Chronic) Calcifying tendinitis of shoulder (Acute) GERD (gastroesophageal reflux disease) (Chronic) Anxiety (Chronic) Prediabetes (Acute) IHSS (idiopathic hypertrophic subaortic stenosis) (Acute) PAC (premature atrial contraction) (Acute) Palpitations (Acute) Medical History History of fibula fracture H/O renal calculi Surgical History H/O hernia repair Family History (Updated 04/28/24 @ 14:12 by Jamia Wong NP) Mother High cholesterol Hypertension Hyperlipidemia Father Carcinoma skin Depression Heart disease High cholesterol Hypertension Sister Depression Heart disease High cholesterol Hypertension Stroke Trigeminal neuralgia Blood clotting disorder 2009 pulmonary embolism Maternal Grandfather , 83 Lymphoma Heart disease Leukemia Paternal Grandfather , 74 Diabetes Heart disease High cholesterol Cirrhosis of liver Maternal Grandmother Dementia Paternal Grandmother , 76 Diabetes Dementia Social History (Updated 04/28/24 @ 14:13 by Jamia Wong NP) Smoking/Tobacco Use Status: Former Tobacco Use tobacco type: cigarettes Quit Date: 05/13/14 Tobacco: How many years used: 8 Second Hand Exposure: Yes Smoking risk assessment performed?: Yes Alcohol Intake: current Alcohol Intake frequency: 3 or more drinks per day Alcohol type: beer and hard liquor Drug use: Daily Substance use type: marijuana Adopted: No Caregiver/Support person: No Household members: spouse Housing: house Communication Needs: None Education Level: high school Do you need help understanding health information?: Never current occupation: cook at [employer] Pets and animals: Yes Pets and animals: cat(s) and dog(s) Sexually active: Yes Do you think of yourself as: straight/heterosexual Current gender identity: male What is your relationship status?: How often do you talk on the phone with friends or family?: once per week How often do you get together with friends or relatives?: decline to answer How often do you attend scientology or orthodoxy services?: decline to answer Do you belong to any clubs or organized social groups?: decline to answer Panel score (0-1 are the most socially isolated patients): 1 Duration: 30-45 minutes/day Frequency: 3-4 times per week Ciarra/Catholic: None Special ciarra needs: No Seatbelt use: always Helmet use: Yes Helmet use: always Drive intox or ride w/intox charter coach driver: No Firearms in home: Yes Firearms unloaded and locked: Yes Do you feel safe at home: Yes Do you feel safe in your relationship?: Yes Victim of physical abuse: No Victim of emotional abuse: No Victim of sexual abuse: No Would you like helpful sources: No PAWSS Have you Been Recently Intoxicated or Drunk Within the Last 30 days?: No Have you Ever Experienced Previous Episodes of Alcohol Withdrawal?: No Have you ever Experienced Withdrawal Seizures?: No Have you ever Experienced Delirium Tremens(DT)s?: No Have you ever undergone Alcohol Rehabilitation Treatment (i.e, inpt ot outpatient treatment programs)?: No Have you ever Experienced Blackouts?: No Have you ever Combined Alcohol with other Downers within the last 90 days?: No Have you ever Combined Alcohol with any other Substance of Abuse during the last 90 days?: No Positive Blood Alcohol level on Presentation? [PCS.BAL]: No Evidence of Increased Autonomic Activity (i.e. HR>120, tremor, sweating, agitation, nausea)?: No Result: 0
[2024-06-05] MEDS: predniSONE 20 MG TAB 60 MG PO (12:40)
[2024-06-05] MEDS: Albuterol/Ipratropium 3 ML UPD VIAL UPD (12:40)
[2024-06-05 13:15] LABS: COVID-19 PCR Negative (Negative); Influenza A PCR Negative (Negative); Influenza B PCR Negative (Negative); RSV PCR Negative (Negative)
[2024-06-05 13:21] LABS: Source Nasopharynx
[2024-06-05] MEDS: Amoxicillin 875/Clav. 125 TAB PO (13:33)
[2024-06-05 13:36] VITALS: BP 109/75; PULSE 106; RESP 22; TEMP 36.6; O2SAT 93
--- NOTE | 2024-06-05 13:37 | DI.VRAD_ITS ---
PROCEDURE INFORMATION: Exam: XR Chest Exam date and time: 06/05/2024 1:04 PM Age: 43 years old Clinical indication: Cough TECHNIQUE: Imaging protocol: Radiologic exam of the chest. Views: 2 views. COMPARISON: CR XR CHEST 2V PA LATERAL 12/25/2020 11:10 AM FINDINGS: Lungs: Lungs are clear with no infiltrate or nodule. Pleural spaces: Unremarkable. No pleural effusion. No pneumothorax. Heart/Mediastinum: Cardiomediastinal silhouette is normal. Bones/joints: Unremarkable. IMPRESSION: No active cardiopulmonary disease. Dictated and Authenticated by: Arnol Roberson MD. Ordering:SERVANDO Reece MD
[2024-06-05] MEDS: Albuterol HFA 8 GM 60 PUFF INH IH (13:39)
== END 2024-06-05 13:40 | disposition home or self-care (01) ==
PROVIDERS: Emergency Provider Emergency Medicine; PCP Nurse Practitioner Family
DX: J06.9 Acute upper respiratory infection, unspecified (principal); R00.1 Bradycardia, unspecified; Z87.891 Personal history of nicotine dependence
CPT/HCPCS: 87637; 93005; 94640; 99285; 71046; 93010; 99284; J7512; J7620

== ENCOUNTER 2025-01-17 09:01 | Emergency (ER) | payer OTHER, SELFPAY ==
[2025-01-17] VITALS (89 sets, daily range): BP systolic 120–154; BP diastolic 77–107; PULSE 66–94; RESP 9–25; TEMP 36.9; O2SAT 94–98
--- NOTE | 2025-01-17 09:00 | RT.EKG_ITS ---
APPROVED REPORT Exam: Resting ECG Reason for Exam: Palpatations Patient Location: E HR:76 bpm ECG Measurements Heart Rate [address] 162 P 27 QRSd 102 QRS 12 QT 426 T 119 QTc 479 Conclusion Sinus rhythm...normal P axis, V-rate 60- 99 LVH with secondary repolarization abnormality...multi-LVH criteria, abnrm ST-T No Occlusion HI
--- NOTE | 2025-01-17 09:03 | W.ED.GENAD ---
Discharge Plan Discharge Details Chief Complaint: Palpitatns Clinical Impression: Pre-syncope, Mitral regurgitation Primary Care Provider: Abiodun Valentine ED Provider: Brian Montemayor Home Meds and New Rx's Prescriptions: No Action lamotrigine 100 mg tablet 100 mg PO DAILY Qty: 90 1RF cetirizine 10 mg capsule 10 mg PO DAILY PRN ibuprofen 800 mg tablet 800 mg PO Q8H albuterol sulfate 90 mcg/actuation HFA aerosol inhaler 2 inh inhalation Q6H PRN (Reason: asthma) Qty: 8.5 3RF metoprolol succinate 100 mg tablet extended release 24 hr 100 mg PO HS Qty: 90 3RF metoprolol succinate 50 mg tablet extended release 24 hr 50 mg PO DAILY Qty: 90 3RF omeprazole 20 mg capsule,delayed release(DR/EC) 20 mg PO DAILY Qty: 90 3RF rosuvastatin 20 mg tablet 20 mg PO HS Qty: 90 3RF sertraline 50 mg tablet 50 mg PO DAILY Qty: 90 4RF Discharge Instructions Additional Instructions: The cardiology team in [place] has arranged for an outpatient follow-up appointment for you: February 13 at 10:40 AM at [facility] HPI General Date/Time Provider Initiated Documentation: 01/17/25 09:03. HPI Narrative: MDM This is an overall well-appearing normothermic and not tachycardic neurologically intact 44-year-old male with vertigo palpitations and concerning history of hypertrophic obstructive cardiomyopathy for which patient will undergo troponin testing and cardiology consultation. Will order the patient his home metoprolol and a small 250 cc bolus of crystalloid. Will obtain a magnesium level and assess his electrolytes. I considered CVA and posterior circulation CVA particular. Patient had no nystagmus no dizziness so I did not feel that he required an MRI. No black or bloody stools to suggest GI bleed. No lower extremity edema no shortness of breath to suggest acute heart failure. I considered DVT however the patient is PERC negative so I did not send a D-dimer. Will obtain a portable chest x-ray. Will maintain patient on telemetry in case his presyncope represented a dysrhythmia. His ECG shows no sign of any heart blocks. His CA and his QTc are within normal limits. He does have an interventricular conduction delay which appears similar to prior. He has no signs of WPW base and no delta wave. No signs of Brugada. I was not suspicious for alcohol withdrawal as patient is neither tachycardic nor hypertensive. 10:10 AM CBC notable for mild normocytic anemia which is new. No leukocytosis. No thrombocytopenia. 10:33 AM Chemistry reassuring with no AMBAR. No acute electrolyte abnormalities. No LFT abnormalities. Magnesium within normal limits. Reassuring chest x-ray per radiology. On initial troponin within normal limits. Will touch base with cardiology at [facility]. 11 AM I was in touch with Briseyda Tobias from [facility] cardiology who help to arrange outpatient follow-up for this patient. Patient has had some mild mitral regurgitation so she advised updating his echocardiogram which I ordered. She arranged for follow-up for the patient on February 13 with cardiology in [facility] at [facility] at 10:40 AM. 1:45 PM Patient had an updated echocardiogram showing moderate mitral regurgitation preserved EF. I reengage with cardiology to discuss after pushing images. 2:30 PM I was in touch with Briseyda Tobias again from [facility]. Patient did not feel back to baseline given his worsened echocardiogram he was transferred to [facility]. He was accepted by Dr. Chaudhari. I signed transfer paperwork. Chronic conditions affecting the care of the patient: Hypertrophic obstructive cardiomyopathy History obtained from an outside historian: N/A External record review: [facility] Diagnostic interpretations performed by me: Per my independent interpretation chest x-ray shows: No acute cardiopulmonary process Per my independent interpretation EKG shows: Signs of LVH. No signs of occlusion myocardial infarction ]Medications: Home metoprolol dose Social determinants of health affecting disposition: N/A Management discussed with: Cardiology at [facility] Treatment/interventions considered: N/A Response to therapies provided: N/A HPI This is a patient with a history of heart condition presenting with vertigo. The patient experienced a mild episode of vertigo on 01/16/2025, which he occasionally experiences. 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 His blood pressure was recorded as 174/109 during this episode by a nurse at his workplace. He also felt nauseous and had to drink water to prevent vomiting. He reports feeling strange, similar to the sensation after smoking marijuana, even though he has not done so. He is not experiencing any chest pain but does report some palpitations. He did not lose consciousness but felt as if he might. He consumed 3 to 4 beers and a couple of whiskeys the previous night but does not experience withdrawal symptoms such as shakes when he abstains from alcohol. He describes his current state as lightheaded with tunnel vision and disorientation. He has not had any recent neck manipulations by a chiropractor or exposure to a generator. He has not exercised for about a month. He has a known heart condition and is on medication for it. However, he forgot to take his morning dose today. His current medications include metoprolol 50 mg in the morning and 100 mg at night, sertraline, omeprazole, a statin, and lamotrigine. Exam General: Well-appearing in no acute distress speaking in complete sentences. Head: Normocephalic, atraumatic. Eye: Extraocular eye movements intact. No conjunctival injection. No scleral icterus. Ear, nose, mouth, throat: Grossly normal inspection. Normal voice, handling secretions normally. Neck: Trachea midline. No nuchal rigidity. Cardiovascular: Well-perfused distal extremities. Regular rate and rhythm with systolic murmur. Respiratory: Nonlabored respiration. Clear lungs bilaterally. Gastrointestinal: Nondistended abdomen. Musculoskeletal: No significant lower extremity pitting edema. Moving all 4 extremities spontaneously. Skin: Normal for age and race, grossly normal temperature and turgor. No acute rash. Neurologic: Alert and appropriate, no apparent acute deficits. GCS 15. Cranial nerves II through XII intact grossly. 5 out of 5 bilateral upper and lower extremity strength. No pronator drift. Psychiatric: Mood and manner are appropriate. Grooming and personal hygiene are appropriate. Related Data Home Medications ?Medication ?Instructions ?Recorded ?Confirmed cetirizine 10 mg capsule 10 mg PO DAILY PRN 02/05/21 01/17/25 ibuprofen 800 mg tablet 800 mg PO Q8H 02/05/21 01/17/25 lamotrigine 100 mg tablet 100 mg PO DAILY #90 tabs 10/17/24 01/17/25 albuterol sulfate 90 mcg/actuation 2 inh inhalation Q6H PRN asthma 12/23/24 01/17/25 aerosol inhaler #8.5 grams metoprolol succinate 100 mg 100 mg PO HS #90 tabs 01/12/25 01/17/25 tablet,extended release 24 hr metoprolol succinate 50 mg 50 mg PO DAILY #90 tabs 01/12/25 01/17/25 tablet,extended release 24 hr omeprazole 20 mg capsule,delayed 20 mg PO DAILY #90 caps 01/12/25 01/17/25 release rosuvastatin 20 mg tablet 20 mg PO HS #90 tabs 01/12/25 01/17/25 sertraline 50 mg tablet 50 mg PO DAILY #90 tabs 01/12/25 01/17/25 Previous Rx's ?Medication ?Instructions ?Recorded lamotrigine 100 mg tablet 100 mg PO DAILY #90 tabs 10/17/24 albuterol sulfate 90 mcg/actuation 2 inh inhalation Q6H PRN asthma 12/23/24 aerosol inhaler #8.5 grams metoprolol succinate 100 mg 100 mg PO HS #90 tabs 01/12/25 tablet,extended release 24 hr metoprolol succinate 50 mg 50 mg PO DAILY #90 tabs 01/12/25 tablet,extended release 24 hr omeprazole 20 mg capsule,delayed 20 mg PO DAILY #90 caps 01/12/25 release rosuvastatin 20 mg tablet 20 mg PO HS #90 tabs 01/12/25 sertraline 50 mg tablet 50 mg PO DAILY #90 tabs 01/12/25 Allergies Allergy/AdvReac Type Severity Reaction Status Date / Time house dust Allergy Unknown sneezing Verified 01/17/25 09:14 cat dander Allergy sneezing Verified 01/17/25 09:14 General NANETTE: 3 PFSH All Active Problems (Updated 01/17/25 @ 13:52 by Brian Montemayor MD) Mitral regurgitation (Chronic) Pre-syncope (Acute) Inguinal pain (Acute) Bilateral ankle pain (Acute) Alcohol abuse (Chronic) Depression (Chronic) Femoroacetabular impingement of both hips (Acute) COVID-19 (Acute) Onset 05/14/22. Fully vaccinated - two boosters total Bivalent booster received 05/05/22 Cardiomyopathy (Acute) Low back pain (Acute) Epigastric pain (Acute) Class 1 obesity without serious comorbidity with body mass index (BMI) of 33.0 to 33.9 in adult (Acute) High cholesterol (Chronic) Calcifying tendinitis of shoulder (Acute) GERD (gastroesophageal reflux disease) (Chronic) Anxiety (Chronic) Prediabetes (Acute) IHSS (idiopathic hypertrophic subaortic stenosis) (Acute) PAC (premature atrial contraction) (Acute) Palpitations (Acute) Medical History History of fibula fracture H/O renal calculi Surgical History H/O hernia repair Family History (Updated 04/28/24 @ 14:12 by Jamia Wong NP) Mother High cholesterol Hypertension Hyperlipidemia Father Carcinoma skin Depression Heart disease High cholesterol Hypertension Sister Depression Heart disease High cholesterol Hypertension Stroke Trigeminal neuralgia Blood clotting disorder 2009 pulmonary embolism Maternal Grandfather , 83 Lymphoma Heart disease Leukemia Paternal Grandfather , 74 Diabetes Heart disease High cholesterol Cirrhosis of liver Maternal Grandmother Dementia Paternal Grandmother , 76 Diabetes Dementia Social History (Updated 04/28/24 @ 14:13 by Jamia Wong NP) Smoking/Tobacco Use Status: Former Tobacco Use tobacco type: cigarettes Quit Date: 05/13/14 Tobacco: How many years used: 8 Second Hand Exposure: Yes Smoking risk assessment performed?: Yes Alcohol Intake: current Alcohol Intake frequency: 3 or more drinks per day Alcohol type: beer and hard liquor Drug use: Daily Substance use type: marijuana Adopted: No Caregiver/Support person: No Household members: spouse Housing: house Communication Needs: None Education Level: high school Do you need help understanding health information?: Never current occupation: cook at retirement Pets and animals: Yes Pets and animals: cat(s) and dog(s) Sexually active: Yes Do you think of yourself as: straight/heterosexual Current gender identity: male What is your relationship status?: How often do you talk on the phone with friends or family?: once per week How often do you get together with friends or relatives?: decline to answer How often do you attend islam or zoroastrian services?: decline to answer Do you belong to any clubs or organized social groups?: decline to answer Panel score (0-1 are the most socially isolated patients): 1 Duration: 30-45 minutes/day Frequency: 3-4 times per week Ciarra/Tenriism: None Special ciarra needs: No Seatbelt use: always Helmet use: Yes Helmet use: always Drive intox or ride w/intox transportation driver: No Firearms in home: Yes Firearms unloaded and locked: Yes Do you feel safe at home: Yes Do you feel safe in your relationship?: Yes Victim of physical abuse: No Victim of emotional abuse: No Victim of sexual abuse: No Would you like helpful sources: No
[2025-01-17] MEDS: Metoprolol CR 50 MG TABCR PO (09:51)
[2025-01-17] MEDS: Normal Saline 250 ML IV (09:51)
[2025-01-17 09:52] LABS: Abs Immature Grans 0.02 10^3/uL (0.0-0.06); HCT 38.6 % (40.0-50.0); HGB 13.3 g/dL (13.5-17.5); Immature Grans % 0.3 %; MCH 29.9 pg (27.0-33.0); MCHC 34.5 % (32.0-36.0); MCV 87 fL (80-95); MPV 11.1 fL (8.0-11.0); Platelet Count 177 10^3/uL (130-400); RBC 4.45 10^6/uL (4.36-5.78); RDW 13.2 % (11.8-14.1); RDW-SD 41.2 fL; WBC 7.27 10^3/uL (4.4-10.8)
--- NOTE | 2025-01-17 09:56 | DI.RAD_ITS ---
Exam(s) XR PORTABLE CHEST AP EXAM: XR PORTABLE CHEST AP CLINICAL HISTORY: Chest pain. TECHNIQUE: 2D digital imaging was performed. COMPARISON: CR,XR XR CHEST 2V PA LATERAL from 06/05/2024 FINDINGS: Single AP portable view. Heart size is upper normal. The mediastinum is not widened. Lungs are clear. No infiltrates nor obvious pleural effusions. IMPRESSION: No acute pulmonary findings on this single AP portable view of the chest. DATA REPOSITORY: RADIATION DOSE DELIVERED:
[2025-01-17 10:19] LABS: ALT 38 U/L (16-63); AST 26 U/L (15-37); Albumin 3.8 g/dL (3.4-5.0); Alkaline Phosphatase 84 U/L (46-116); Anion Gap 7.2 mmol/L (3-11); BUN 12 mg/dL (7-18); Bilirubin, Total 0.6 mg/dL (0.2-1.0); CO2 27.8 mmol/L (21.0-32.0); Calcium 9.0 mg/dL (8.5-10.1); Chloride 104 mmol/L (98-107); Estimated GFR 94.59 (mL/min/1.73m2); Glucose 116 mg/dL (74-106); Magnesium 1.9 mg/dL (1.8-2.4); Potassium 3.9 mmol/L (3.5-5.1); Sodium 139 mmol/L (136-145); Total Protein 7.3 g/dL (6.4-8.2); Troponin I 63 ng/L (<or=76)
[2025-01-17 10:59] LABS: Troponin I 65 ng/L (<or=76)
--- NOTE | 2025-01-17 11:00 | DI.US_ITS ---
APPROVED REPORT EXAM: Comprehensive 2D, Doppler, and color-flow Echocardiogram Patient Location: ER Room/Bed: 7 Newborn Photographer: Marisela Callaway RDCS (AE) Indications: HOCM Other Information Study Quality: Adequate. Technically limited study due to body habitus exam done supine bedside ER. Conclusion Severe left ventricular hypertrophy. The upper septum is disproportionately thickened. EF is 55 to 60%. Wall motion is normal Ascending aorta measures 3.7 cm Mitral annular calcification. Moderate eccentric mitral regurgitation Trileaflet aortic valve. No aortic regurgitation. Mild aortic stenosis Wall motion Left Ventricle The left ventricle is normal size. The left ventricular systolic function is normal. The left ventricular ejection fraction is within the normal range. Echo findings are not consistent with a left ventricular outflow tract obstruction. Asymmetric septal thickening is noted. Severe concentric left ventricular hypertrophy Severe septal hypertrophy is present. There is normal LV segmental wall motion. There is no ventricular septal defect visualized. LVEF is 55%. Right Ventricle Right ventricle is grossly normal in size. Right ventricular systolic function is grossly normal. Atria Left atrium is moderately dilated. The right atrium size is normal. The interatrial septum is intact with no evidence for an atrial septal defect. Aortic Valve The aortic valve is normal in structure. Aortic valve is trileaflet. Mild aortic stenosis. Mean gradient is 15 mmHg No aortic regurgitation is present. Mitral Valve Severe mitral annular calcification. No evidence of mitral valve stenosis. Moderate mitral regurgitation. Tricuspid Valve The tricuspid valve is normal in structure. There is no tricuspid valve stenosis. Trace tricuspid regurgitation. Unable to assess PA pressure. Pulmonic Valve The pulmonary valve is normal in structure. There is no pulmonic valvular stenosis. There is no pulmonic valvular regurgitation. Great Vessels The aortic root is normal in size. The ascending aorta is mildly dilated. Aortic arch is normal in caliber. IVC is normal in size and collapses >50% with inspiration. Pericardium There is no pericardial effusion. 2D Dimensions IVSD d PLAX 2.11 cm M: 0.6-1.2 Ao Root d 3.16 cm M: 3.1 - 3.7 LVPW d PLAX 1.56 cm M: 0.6 - 1.2 Ao Asc Diam d 3.70 cm M: 2.6 - 3.4 LVID d PLAX 4.73 cm M: 4.2 - 5.8 LVDs 3.38 cm M: 2.5 - 4.0 LV EF Teichholz 54.9 % FS 28.47 % LV EDV (Teich) 103.7 mL LV ESV (Teich) 46.8 mL M-Mode TAPSE 2.61 cm (M/F) >1.7 Auto EF LV EDV A4C 211.2 mL LV EDV A2C 179.2 mL LV EDV BP 194.4 mL LV ESV A4C 93.4 mL LV ESV A2C 81.4 mL LV ESV BP 85.8 mL LVEF(%) A4C 55.8 % LVEF(%) A2C 54.6 % LVEF(%) BP 55.9 % LV SV A4C 117.8 ml LV SV A2C 97.8 ml LV SV BP 108.6 ml LV CO A4C 7.8 L/min LV CO A2C 7.0 L/min LV CO BP 7.4 L/min HR A4C 66.06 BPM HR A2C 71.15 BPM LV EDV Index (BP) LA Volume LA Length A4C 5.3 cm LA Length A2C 6.0 cm LA Area A4C s 23.01 cm2 LA Area A2C s 30.34 cm2 LA Vol A4C A-L 84.60 mL LA Vol A2C A-L 129.63 mL LA Vol Biplane A- L 111.6 mL LA Vol/BSA A4C A-L LA Vol/BSA A2C A-L LA Vol/BSA BP A-L 50.3 mL/m2 LA Vol A4C MOD 80.7 mL LA Vol A2C MOD 118.3 mL LA Vol BP MOD 103.8 mL LV Diastology MV E' medial 0.062 (>0.07 m/s) MV E Vmax 1.46 (0.4-1.3 m/s) MV E/E' MED 23.68 (<14) MV A Vmax 0.65 (0.4-1.3 m/s) MV E' lateral 0.064 (>0.1 m/s) E/A Ratio 2.2 MV E/E' LAT 22.69 (<14) MV E' Average 0.063 m/s MV E/E'(average) 23.17 Aortic Valve AoV Vmax 2.94 m/s LVOT Diam s 2.05 cm AoV Peak Grad 34.6 mmHg AV Regurg Peak Gr. 34.64 mmHg AoV VTI 0.582 m AoV Mean Yung. 1.89 m/s AoV Mean Grad 17.0 mmHg Mitral Valve MV DT 176 (160-240 msec) MV Vmax TIPS 1.48 m/s MV Mean Grad 3.4 (<2mmHg) MV VTI 0.436 m Pulmonary Valve PV Vmax 0.96 (0.5-1.5 m/s) RVOT Vmax 0.86 m/s PV Peak Grad 3.7 mmHg RVOT Peak Gr. 3.0 mmHg PV Mean Yung 0.69 m/s RVOT VTI 0.156 m PV Mean Grad 2.1 mmHg RVOT Mean Gr. 1.4 mmHg Tricuspid Valve RA Pressure 3.00 mmHg TV S' 0.14 m/s
== END 2025-01-17 18:23 ==
PROVIDERS: Emergency Provider Emergency Medicine; PCP Nurse Practitioner Family
DX: R00.2 Palpitations (principal); R55 Syncope and collapse; D64.9 Anemia, unspecified; I34.0 Nonrheumatic mitral (valve) insufficiency; Z87.891 Personal history of nicotine dependence
CPT/HCPCS: 36415; 80053; 93005; 96360; 99285; 71045; 83735; 84484; 85025; 93010; 93306

== ENCOUNTER 2025-03-07 08:06 | Emergency (ER) | payer OTHER, SELFPAY ==
[2025-03-07] VITALS (20 sets, daily range): BP systolic 115–137; BP diastolic 64–97; PULSE 61–74; RESP 0–21; TEMP 36.3; O2SAT 94–97
--- NOTE | 2025-03-07 08:00 | RT.EKG_ITS ---
APPROVED REPORT Exam: Resting ECG Reason for Exam: chest pain Patient Location: E HR:65 bpm ECG Measurements Heart Rate 65 AXIS NJ 167 P 8 QRSd 105 QRS 13 QT 452 T 114 QTc 471 Conclusion Sinus rhythm...normal P axis, V-rate 60- 99 Left atrial enlargement...P, P'>60mS, <-0.15mV V1 LVH with secondary repolarization abnormality...multi-LVH criteria, abnrm ST-T No STEMI
--- NOTE | 2025-03-07 08:30 | DI.RAD_ITS ---
Exam(s) XR CHEST 2V PA LATERAL EXAM: XR CHEST 2V PA LATERAL CLINICAL HISTORY: Chest pain TECHNIQUE: 2D digital imaging was performed of the chest. Two images were obtained. PA and lateral views were obtained. COMPARISON: CR,XR XR CHEST 2V PA LATERAL from 06/05/2024 FINDINGS: MEDIASTINUM: Normal. HEART: Normal. PULMONARY VASCULATURE: Normal. LUNGS: Clear. PLEURAL SPACE: No pleural effusion or pneumothorax. BONE:Within normal limits for the patient's age. OTHER FINDINGS:Normal. IMPRESSION: No acute pulmonary findings. DATA REPOSITORY: RADIATION DOSE DELIVERED:
[2025-03-07 08:46] LABS: Abs Immature Grans 0.02 10^3/uL (0.0-0.06); HCT 40.1 % (40.0-50.0); HGB 13.6 g/dL (13.5-17.5); Immature Grans % 0.3 %; MCH 28.8 pg (27.0-33.0); MCHC 33.9 % (32.0-36.0); MCV 85 fL (80-95); MPV 11.1 fL (8.0-11.0); Platelet Count 180 10^3/uL (130-400); RBC 4.72 10^6/uL (4.36-5.78); RDW 13.0 % (11.8-14.1); RDW-SD 40.1 fL; WBC 6.65 10^3/uL (4.4-10.8)
[2025-03-07 09:17] LABS: ALT 34 U/L (16-63); AST 24 U/L (15-37); Albumin 3.8 g/dL (3.4-5.0); Alkaline Phosphatase 74 U/L (46-116); Anion Gap 6.6 mmol/L (3-11); BUN 14 mg/dL (7-18); Bilirubin, Total 0.6 mg/dL (0.2-1.0); CO2 27.4 mmol/L (21.0-32.0); Calcium 9.1 mg/dL (8.5-10.1); Chloride 104 mmol/L (98-107); Estimated GFR 84.37 (mL/min/1.73m2); Glucose 122 mg/dL (74-106); Magnesium 2.0 mg/dL (1.8-2.4); NT-proBNP 1454 pg/mL (<300); Potassium 4.1 mmol/L (3.5-5.1); Sodium 138 mmol/L (136-145); Total Protein 7.4 g/dL (6.4-8.2); Troponin I 42 ng/L (<or=76)
--- NOTE | 2025-03-07 09:38 | DI.CT_ITS ---
Exam(s) CT CHEST WO EXAM: CT CHEST WO CLINICAL HISTORY: hypoxia, fall. TECHNIQUE: Imaging protocol: Axial computed tomography images were obtained and coronal and sagittal reformatted images were created and reviewed. Lung Computer Aided Detection (CAD) was utilized. COMPARISON: CR XR CHEST 2V PA LATERAL from 03/07/2025 FINDINGS: Tracheobronchial tree: Patent where visualized. No bronchiectasis is present. Pulmonary parenchyma: No consolidation or dominant measurable mass. No architectural distortion. Mediastinum and [place]: No dominant adenopathy or fluid collection. The esophagus is unremarkable. Thyroid gland: Unremarkable. Pleura: No effusion or pneumothorax. Heart: Cardiomegaly. No coronary artery calcifications are seen. No pericardial effusion. Dense calcification of the mitral annulus is seen. Aorta: Thoracic aorta non-dilated. Mild atherosclerotic calcification is present. Upper abdomen: Unremarkable. Lymph nodes: There is a mildly enlarged right inguinal lymph node with a short axis diameter of 1.4 cm. Soft tissues: Unremarkable. Bones:Within normal limits for the patient's age. There are no displaced rib fractures present. There are no acute fractures or subluxations seen of the thoracic spine. IMPRESSION: 1. There is no acute pulmonary process. 2. No focal consolidating infiltrates, pleural effusion or pneumothorax. RADIATION DOSE DELIVERED: 301.74mGy.cm Total DLP 301.74mGy.cm Total DLP DATA REPOSITORY: All CT scans at this facility are submitted to the National Radiology Data Registry (NRDR) Dose Index Registry (DIR) with the [employer] (ACR). RADIATION OPTIMIZATION: All CT scans at this facility use at least one of these dose optimization techniques: automated exposure control; mA and/or kV adjustment per patient size (includes targeted exams where dose is matched to clinical indication); or iterative reconstruction.
[2025-03-07 10:04] LABS: Troponin I 42 ng/L (<or=76)
--- NOTE | 2025-03-07 15:00 | W.ED.GENAD ---
Discharge Plan Disposition Patient Disposition: Home Condition: Stable Discharge Details Clinical Impression: Heart palpitations, Hypertrophic cardiomyopathy Primary Care Provider: Abiodun Valentine ED Provider: Shana Lund Home Meds and New Rx's Prescriptions: Continued metoprolol succinate 100 mg tablet extended release 24 hr 150 mg PO HS lamotrigine 100 mg tablet 100 mg PO DAILY Qty: 90 1RF cetirizine 10 mg capsule 10 mg PO DAILY PRN ibuprofen 800 mg tablet 800 mg PO Q8H albuterol sulfate 90 mcg/actuation HFA aerosol inhaler 2 inh inhalation Q6H PRN (Reason: asthma) Qty: 8.5 3RF metoprolol succinate 50 mg tablet extended release 24 hr 50 mg PO DAILY Qty: 90 3RF rosuvastatin 20 mg tablet 20 mg PO HS Qty: 90 3RF sertraline 50 mg tablet 50 mg PO DAILY Qty: 90 4RF mavacamten 5 mg capsule 5 mg PO DAILY [place] Inst[place]: [place] [facility] [place]oprazole 20 mg tablet,delayed release (DR/EC) 20 mg PO DAILY Qty: 90 3RF Discharge Instructions Instructions: Palpitations (DC) Additional Instructions: Please follow-up with [facility] at your appointment on Thursday If you develop worsening palpitations and you feel like you might pass out or you pass out you should be reevaluated immediately Your lab tests today and x-ray are reassuring Make sure you are drinking at least eight 8 ounce glasses of water daily and try to stay away from alcohol is much as possible Referrals: Abiodun Valentine, [employer] [Primary Care Provider, Medicine] Discharge Data Discharge Date/Time-TO BE ENTERED AT DEPARTURE: 03/07/25 11:02 HPI General Date/Time Provider Initiated Documentation: 03/07/25 08:18. HPI Narrative: This 44-year-old male presents with report of palpitations. Patient states that his symptoms have been intermittent since Thursday evening. He did start on Camzyos on Thursday evening for history of hypertrophic cardiomyopathy he is actually scheduled for an ICD placement on Thursday at [facility]. He was recently admitted to [facility] and had echocardiogram and cardiac MRI. He states that the palpitations have been intermittent he denies any presyncopal symptoms or syncope associated with them he was mostly concerned because he had started on this new medication and wanted to be sure this was not a serious side effect. He does state that the palpitations have been strong in nature but nothing he has not experienced in the past. He denies any calf pain or swelling or history of coagulopathy. Denies fever chills or respiratory symptoms. Denies dyspnea on exertion or chest pain on exertion. Related Data Home Medications ?Medication ?Instructions ?Recorded ?Confirmed cetirizine 10 mg capsule 10 mg PO DAILY PRN 02/05/21 01/17/25 ibuprofen 800 mg tablet 800 mg PO Q8H 02/05/21 01/17/25 lamotrigine 100 mg tablet 100 mg PO DAILY #90 tabs 10/17/24 01/17/25 albuterol sulfate 90 mcg/actuation 2 inh inhalation Q6H PRN asthma 12/23/24 01/17/25 aerosol inhaler #8.5 grams metoprolol succinate 50 mg 50 mg PO DAILY #90 tabs 01/12/25 01/17/25 tablet,extended release 24 hr rosuvastatin 20 mg tablet 20 mg PO HS #90 tabs 01/12/25 01/17/25 sertraline 50 mg tablet 50 mg PO DAILY #90 tabs 01/12/25 01/17/25 metoprolol succinate 100 mg 150 mg PO HS 01/26/25 01/26/25 tablet,extended release 24 hr mavacamten 5 mg capsule 5 mg PO DAILY 02/20/25 pantoprazole 20 mg tablet,delayed 20 mg PO DAILY #90 tabs 02/22/25 release Previous Rx's ?Medication ?Instructions ?Recorded lamotrigine 100 mg tablet 100 mg PO DAILY #90 tabs 10/17/24 albuterol sulfate 90 mcg/actuation 2 inh inhalation Q6H PRN asthma 12/23/24 aerosol inhaler #8.5 grams metoprolol succinate 50 mg 50 mg PO DAILY #90 tabs 01/12/25 tablet,extended release 24 hr rosuvastatin 20 mg tablet 20 mg PO HS #90 tabs 01/12/25 sertraline 50 mg tablet 50 mg PO DAILY #90 tabs 01/12/25 pantoprazole 20 mg tablet,delayed 20 mg PO DAILY #90 tabs 02/22/25 release Allergies Allergy/AdvReac Type Severity Reaction Status Date / Time house dust Allergy Unknown sneezing Verified 01/17/25 09:14 cat dander Allergy sneezing Verified 01/17/25 09:14 General Stated Complaint: Palpitatns NANETTE: 3 Exam Narrative Exam Narrative: Alert and oriented 44-year-old male who actually is well in appearance, he is answering questions appropriately he has a notable murmur cardiac rate rhythm is regular lungs are clear to auscultation no abdominal tenderness no significant peripheral edema with distal pulses intact Course Vital Signs Vital signs: Vital Signs Temperature 36.3 C L 03/07/25 08:08 Pulse 69 03/07/25 08:08 Respiratory Rate 15 03/07/25 08:08 Blood Pressure 137/97 H 03/07/25 08:08 Pulse Oximetry 97 03/07/25 08:08 Temperature 36.3 C L 03/07/25 08:08 Temperature Source Tympanic 03/07/25 08:08 Pulse 61 03/07/25 10:53 Pulse 62 03/07/25 10:04 Respiratory Rate 16 03/07/25 10:04 Blood Pressure 127/83 03/07/25 10:53 Blood Pressure Mean 93 03/07/25 10:53 Blood Pressure Position Sitting 03/07/25 08:08 Pulse Oximetry 96 03/07/25 10:04 Oxygen Delivery Method Room Air 03/07/25 08:08 Oxygen Flow Rate 0 03/07/25 08:08 Pain Level 0 03/07/25 11:02 Lab/Test Results Lab/Test Results: Laboratory Tests Range/Units 03/07/25 03/07/25 08:20 09:30 WBC (4.4-10.8) 10^3/uL 6.65 RBC (4.36-5.78) 10^6/uL 4.72 Hgb (13.5-17.5) g/dL 13.6 Hct (40.0-50.0) % 40.1 MCV (80-95) fL 85 MCH (27.0-33.0) pg 28.8 MCHC (32.0-36.0) % 33.9 RDW (11.8-14.1) % 13.0 Plt Count (130-400) 10^3/uL 180 MPV (8.0-11.0) fL 11.1 H Immature Gran % % 0.3 Neutrophils % % 63.2 Lymphocytes % % 21.1 Monocytes % % 8.4 Eosinophils % % 5.9 Basophils % % 1.1 Nucleated RBC % (0.0-0.3) % 0.0 Absolute Neutrophils (1.2-6.7) 10^3/uL 4.21 Absolute Lymphocytes (1.2-3.4) 10^3/uL 1.40 Absolute Monocytes (0.1-0.8) 10^3/uL 0.56 Absolute Eosinophils (0.0-0.7) 10^3/uL 0.39 Absolute Basophils (0.0-0.2) 10^3/uL 0.07 Sodium (136-145) mmol/L 138 Potassium (3.5-5.1) mmol/L 4.1 Chloride (98-107) mmol/L 104 Carbon Dioxide (21.0-32.0) mmol/L 27.4 Anion Gap (3-11) mmol/L 6.6 BUN (7-18) mg/dL 14 Creatinine (0.70-1.30) mg/dL 1.1 Est GFR (CKD-EPI 2020) (mL/min/1.73m2) 84.37 Glucose (74-106) mg/dL 122 H Calcium (8.5-10.1) mg/dL 9.1 Magnesium (1.8-2.4) mg/dL 2.0 Total Bilirubin (0.2-1.0) mg/dL 0.6 AST (15-37) U/L 24 ALT (16-63) U/L 34 Alkaline Phosphatase (46-116) U/L 74 Troponin I (<or=76) ng/L 42 42 NT-Pro-B Natriuret Pep (<300) pg/mL 1454 H Total Protein (6.4-8.2) g/dL 7.4 Albumin (3.4-5.0) g/dL 3.8 Medical Decision Making Complex 44-year-old male presenting with palpitations with history of hypertrophic cardiomyopathy followed by [facility]. Ordered chest CT, diagnostic labs 2 troponins negative BNP 1474 nothing similar to compare however patient is not overtly looking volume overloaded on my assessment CT chest is reassuring per radiology interpretation of my review. I spoke with Morena Mcghee, cardiology nurse practitioner from [facility] and they feel as though patient is safe for discharge home as she has had no abnormal telemetry dysrhythmia findings EKG is stable for patient when compared to prior to negative troponins stable electrolytes and assessment and I will follow-up with him at his scheduled appointment on Thursday. Patient was observed in the emergency department for approximately 2.5 hours. Discharged home in stable condition with stable vitals return precautions reviewed and patient expressed understanding [facility] All Active Problems (Updated 03/07/25 @ 10:38 by NORMA Mathis) Hypertrophic cardiomyopathy (Acute) Heart palpitations (Acute) Inguinal pain (Acute) Bilateral ankle pain (Acute) Alcohol abuse (Chronic) Depression (Chronic) Femoroacetabular impingement of both hips (Acute) COVID-19 (Acute) Onset 05/14/22. Fully vaccinated - two boosters total Bivalent booster received 05/05/22 Cardiomyopathy (Acute) Low back pain (Acute) Epigastric pain (Acute) Class 1 obesity without serious comorbidity with body mass index (BMI) of 33.0 to 33.9 in adult (Acute) High cholesterol (Chronic) Calcifying tendinitis of shoulder (Acute) GERD (gastroesophageal reflux disease) (Chronic) Anxiety (Chronic) Prediabetes (Acute) IHSS (idiopathic hypertrophic subaortic stenosis) (Acute) PAC (premature atrial contraction) (Acute) Palpitations (Acute) Medical History History of fibula fracture H/O renal calculi Surgical History H/O hernia repair Family History (Updated 04/28/24 @ 14:12 by Jamia Wogn NP) Mother High cholesterol Hypertension Hyperlipidemia Father Carcinoma skin Depression Heart disease High cholesterol Hypertension Sister Depression Heart disease High cholesterol Hypertension Stroke Trigeminal neuralgia Blood clotting disorder 2009 pulmonary embolism Maternal Grandfather , 83 Lymphoma Heart disease Leukemia Paternal Grandfather , 74 Diabetes Heart disease High cholesterol Cirrhosis of liver Maternal Grandmother Dementia Paternal Grandmother , 76 Diabetes Dementia Social History (Updated 04/28/24 @ 14:13 by Jamia Wong NP) Smoking/Tobacco Use Status: Former Tobacco Use tobacco type: cigarettes Quit Date: 05/13/14 Tobacco: How many years used: 8 Second Hand Exposure: Yes Smoking risk assessment performed?: Yes Alcohol Intake: current Alcohol Intake frequency: 3 or more drinks per day Alcohol type: beer and hard liquor Drug use: Daily Substance use type: marijuana Adopted: No Caregiver/Support person: No Household members: spouse Housing: house Communication Needs: None Education Level: high school Do you need help understanding health information?: Never 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 Pets and animals: Yes Pets and animals: cat(s) and dog(s) Sexually active: Yes Do you think of yourself as: straight/heterosexual Current gender identity: male What is your relationship status?: How often do you talk on the phone with friends or family?: once per week How often do you get together with friends or relatives?: decline to answer How often do you attend gnosticism or lutheran services?: decline to answer Do you belong to any clubs or organized social groups?: decline to answer Panel score (0-1 are the most socially isolated patients): 1 Duration: 30-45 minutes/day Frequency: 3-4 times per week Ciarra/Judaism: None Special ciarra needs: No Seatbelt use: always Helmet use: Yes Helmet use: always Drive intox or ride w/intox lead driver: No Firearms in home: Yes Firearms unloaded and locked: Yes Do you feel safe at home: Yes Do you feel safe in your relationship?: Yes Victim of physical abuse: No Victim of emotional abuse: No Victim of sexual abuse: No Would you like helpful sources: No PAWSS Have you Been Recently Intoxicated or Drunk Within the Last 30 days?: No Have you Ever Experienced Previous Episodes of Alcohol Withdrawal?: No Have you ever Experienced Withdrawal Seizures?: No Have you ever Experienced Delirium Tremens(DT)s?: No Have you ever undergone Alcohol Rehabilitation Treatment (i.e, inpt ot outpatient treatment programs)?: No Have you ever Experienced Blackouts?: No Have you ever Combined Alcohol with other Downers within the last 90 days?: No Have you ever Combined Alcohol with any other Substance of Abuse during the last 90 days?: No Result: 0
== END 2025-03-07 11:02 | disposition home or self-care (01) ==
PROVIDERS: Emergency Provider Physician Assistant; PCP Nurse Practitioner Family
DX: R00.2 Palpitations (principal); I42.2 Other hypertrophic cardiomyopathy; I10 Essential (primary) hypertension
CPT/HCPCS: 99284 ×2; 36415; 71250; 80053; 93005; 71046; 83735; 83880; 84484; 85025; 93010

== ENCOUNTER 2025-06-12 13:58 | Outpatient (CLI) | payer OTHER, SELFPAY ==
[2025-06-12 14:07] LABS: Hemoglobin A1C 5.9 % (<5.7)
[2025-06-12 17:39] LABS: Cholesterol 204 mg/dL (<200); HDL Cholesterol 68 mg/dL (>40)
== END 2025-06-12 13:59 | disposition home or self-care (01) ==
LOC: LBO 14:02
PROVIDERS: PCP Nurse Practitioner Family; Visit Provider Nurse Practitioner Family
DX: Z13.220 Encounter for screening for lipoid disorders (principal); Z13.1 Encounter for screening for diabetes mellitus
CPT/HCPCS: 36415; 80061; 83036